=== PATIENT | male | born 1975 | race Caucasian/White ===

== ENCOUNTER 2022-12-27 21:35 | Emergency (ER) | payer SELFPAY ==
[~2022-12-27] VITALS: Ht 188 cm; Wt 113.4 kg
[2022-12-27 21:48] VITALS: BP 138/77
--- NOTE | 2022-12-27 21:55 | NUR ---
BIBS C/O "TOOTH ABSCESS RUPTURED, NEEDS MORE ANTIBIOTICS ITS NOT WORKING". AX[facility] AMBULATORY.
[2022-12-27] MEDS ORDERED: CLINDAMYCIN 900 MG/6 ML VIAL ONE (22:24)
[2022-12-27] MEDS ORDERED: CLIN300C12 PO (22:28)
[2022-12-27] MEDS ORDERED: CLINDAMYCIN 600 MG in IV D5W 100 ML IM ONE (22:30)
--- NOTE | 2022-12-27 22:32 | NUR ---
PT REFUSED IM CLINDAMYCIN. PT STATES THAT HE IS ALREADY TAKING ANTIBIOTICS FROM HIS PRIMARY CARE
[2022-12-27] MEDS ORDERED: CHLO473M5 PO (23:26)
--- NOTE | 2022-12-27 23:43 | NUR ---
Patient discharged to home in stable condition. Written and verbal after care instructions given. Patient verbalizes understanding of instruction.
== END 2022-12-27 23:43 | disposition home or self-care (01) ==
LOC: ER 21:36
DX: K04.7 Periapical abscess without sinus (principal); Z60.2 Problems related to living alone
CPT/HCPCS: J3490; J7060